=== PATIENT | female | born 1975 | race Caucasian/White ===

== ENCOUNTER → 2024-01-22 16:22 | Outpatient (CLI) | payer BC, SELFPAY ==
--- NOTE | ~2024-01-22 | XR_ITS ---
EXAMINATION: XR chest 2V DATE: 01/22/2024 16:52 INDICATION: Cough. TECHNIQUE: Frontal and lateral views of the chest were obtained. COMPARISON: None. FINDINGS: There is mild atelectasis at right lung base. No pleural effusion or pneumothorax. The hear t size is normal. IMPRESSION: 1. Mild atelectasis at right lung base. Reviewed, dictated and finalized at location E. [employer]
== END ==
DX: R05.9 Cough, unspecified (principal); J98.11 Atelectasis
CPT/HCPCS: 71046

== ENCOUNTER 2024-04-16 15:22 | Outpatient (CLI) | payer BC, SELFPAY ==
--- NOTE | ~2024-04-16 | XR_ITS ---
XR_[id number]_CR DATE: 04/16/2024 15:44 INDICATION: Right knee pain TECHNIQUE: Standing AP and lateral views COMPARISON: None FINDINGS: There is morbid obesity. There is severe joint space narrowing and prominent periarticular spurring of the patellofemoral and medial compartments consistent with severe osteoarthritis. There is associated mild varus deformity. Osteopenia. No fracture, dislocation, periosteal reaction or bone destruction. No significant joint effusion is i dentified. No radiopaque intra-articular loose body or chondrocalcinosis is noted. IMPRESSION: Severe osteoarthritis at the patellofemoral and medial compartments Reviewed, dictated and finalized at Location A. Reviewed, dictated and finalized at location B.
== END 2024-04-16 15:23 ==
LOC: MICIMG 15:28
DX: M17.11 Unilateral primary osteoarthritis, right knee (principal)
CPT/HCPCS: 73560

== ENCOUNTER 2025-08-03 09:21 | Outpatient (CLI) | payer BC, SELFPAY ==
--- NOTE | ~2025-08-03 | MR_ITS ---
EXAMINATION: MR lumbar spine wo con DATE: 08/03/2025 09:56 INDICATION: Lumbar radiculopathy TECHNIQUE: Magnetic resonance imaging (MRI) of the lumbar spine was performed without intravenous contrast. Sequences included sagittal T2-weighted FSE, sagittal T2-weighted FS FSE, sagittal T1-weighted FSE, and axial T2-weighted FSE. COMPARISON: None FINDINGS: 2 mm anterolisthesis L5 on S1. There appears to be a likely left-sided and possible right-sided pars interarticularis defect. Vertebral body heights are normal. Normal marrow signal. Disc desiccation and moderate disc height loss at L5-S1. Additional mild disc desiccation and mild disc height loss at L3-L4. Mild disc height loss at T10-T11. The conus medullaris terminates at L1-L2. There is normal signal in the caudal spinal cord. Paravertebral soft tissues are unremarkable. The following disc levels are specifically discussed: T12-L1: The disc does not extend beyond the endplate margin. There is mild left and moderate right facet joint osteoarthritis. There is no neural foraminal stenosis. There is no central canal stenosis. L1-L2: Small right paracentral disc protrusion There is mild bilateral facet joint osteoarthritis. There is no neural foraminal stenosis. There is mild central canal stenosis. L2-L3: Disc is mildly bulging with superimposed central disc protrusion. There is hypertrophy of the ligamentum flavum. There is moderate bilateral facet joint osteoarthritis. There is mild bilateral neural foraminal stenosis. There is mild to moderate central canal stenosis. L3-L4: Disc is bulging. There is mild left and moderate right facet joint osteoarthritis. There is mild right and moderate left neural foraminal stenosis. There is mild central canal stenosis. L4-L5: Disc is mildly bulging. There is moderate left and mild right facet joint osteoarthritis. There is mild right and moderate left neural foraminal stenosis. There is no central canal stenosis. L5-S1: Disc is bulging. There is mild to moderate right and moderate left facet joint osteoarthritis. There is moderate bilateral neural foraminal stenosis. There is no central canal stenosis. IMPRESSION: 1. Mild to moderate lower lumbar predominant spondylosis. 2. 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 Could consider CT or oblique radiographs of the lumbar spine for confirmation of the suspected pars defects. Reviewed, dictated and finalized at location A.
== END 2025-08-03 09:22 | disposition home or self-care (01) ==
PROVIDERS: Visit Provider Nurse Practitioner Family
DX: M47.816 Spondylosis without myelopathy or radiculopathy, lumbar region (principal); M43.17 Spondylolisthesis, lumbosacral region; M54.16 Radiculopathy, lumbar region; M54.42 Lumbago with sciatica, left side
CPT/HCPCS: 72148

== ENCOUNTER 2025-08-19 12:30 | Outpatient (CLI) | payer BC, SELFPAY ==
--- NOTE | ~2025-08-19 | XR_ITS ---
EXAMINATION: XR_[id number]_CR, 08/19/2025 13:10 CDT HISTORY: Pain in BI knee COMPARISON: No comparisons available. Findings: No acute fracture or malalignment. Moderate to severe tricompartmental degenerative changes with small joint effusion Soft tissues unremarkable. Impression: No acute fracture or malalignment. Reviewed, dictated and finalized at location A. Impression: No acute fracture or malalignment.
--- NOTE | ~2025-08-19 | XR_ITS ---
EXAMINATION: XR_[id number]_CR, 08/19/2025 13:10 CDT HISTORY: Pain in BI knee COMPARISON: No comparisons available. Findings: No acute fracture or malalignment. Moderate to severe tricompartmental degenerative changes with small joint effusion Soft tissues unremarkable. Impression: No acute fracture or malalignment. Reviewed, dictated and finalized at location A. Impression: No acute fracture or malalignment.
== END 2025-08-19 12:31 | disposition home or self-care (01) ==
LOC: MICIMG 12:33
PROVIDERS: Visit Provider Nurse Practitioner Family
DX: M25.562 Pain in left knee (principal); M25.561 Pain in right knee
CPT/HCPCS: 73560